=== PATIENT | female | born 1960 | race Two or more races ===

== ENCOUNTER → 2016-03-12 | Outpatient (CLI) | payer OTHER ==
--- NOTE | 2016-03-12 13:24 | RAD ---
Indication: Low back pain extending into the right leg. Time of exam 12:36 PM Curvature and alignment is normal. Vertebral body heights are well-maintained. No acute compression fracture is detected. Mild degenerative disc disease is seen with marginal spurring. Impression: Mild lumbar spondylosis. No acute bony abnormality is detected.
== END | disposition home or self-care (01) ==
LOC: RAD 12:15
PROVIDERS: ATTEND Family Medicine
DX: M54.5 Low back pain (principal); M47.896 Other spondylosis, lumbar region
CPT/HCPCS: 72100